=== PATIENT | female | born 1935 | race Two or more races ===

== ENCOUNTER 2017-06-23 08:16 | Inpatient (IN) | payer MEDICARE ==
[~2017-06-23] VITALS: Ht 162.6 cm; Wt 80.7 kg
--- NOTE | 2017-06-23 08:16 | NUR ---
BB RA 89 FROM HOME C/O SOB SATING 97% HYPOTENSIVE 65/34 NOW 124/84, STARTED TAKING LEVAQUIN AND VOLATAREN X1 DAY NURSING EXECUTIVE FROM PCP, MD AND RT AT BEDSIDE. PUT ON HOSPITAL GOWN AND MONITOR.
--- NOTE | 2017-06-23 08:44 | NUR ---
BLOOD SAMPLE SENT TO LAB
--- NOTE | 2017-06-23 08:44 | NUR ---
XRAY AT BS
--- NOTE | 2017-06-23 08:45 | NUR ---
IV ACCESS SEED ANALYSIS LABORATORY ASSISTANT.
[2017-06-23 08:55] LABS: BASOPHILS % (AUTO) 0.1 % (0.0-2.0); EOSINOPHILS # (AUTO) 0.9 /CMM (0.0-0.7); HEMATOCRIT 40 % (33-45); HEMOGLOBIN 12.8 g/dL (11.5-14.8); LYMPHOCYTES # (AUTO) 1.2 /CMM (0.8-4.8); LYMPHOCYTES % (AUTO) 11.1 % (20.0-44.0); MEAN CORPUSCULAR HEMOGLOBIN 29 PG (26.0-33.0); MEAN CORPUSCULAR HGB CONC 32 g/dl (31.0-36.0); MEAN CORPUSCULAR VOLUME 90 fL (82-100); MONOCYTES # (AUTO) 0.3 /CMM (0.1-1.30); MONOCYTES % (AUTO) 2.5 % (2.0-12.0); NEUTROPHILS # (AUTO) 8.8 /CMM (1.8-8.9); NEUTROPHILS % (AUTO) 78.3 % (43.0-81.0); PLATELET COUNT (AUTO) 284 /CMM (150-450); RED BLOOD CELL COUNT(AUTO) 4.42 MIL/uL (4.0-5.2); WHITE BLOOD COUNT (AUTO) 11.3 K/uL (4.3-11.0)
[2017-06-23 09:18] LABS: CALCIUM, SERUM 10.1 mg/dL (8.5-10.1); CARBON DIOXIDE 27 mmol/L (21-32); CHLORIDE 97 mmol/L (98-107); CREATININE 2.2 mg/dL (0.6-1.3); GLUCOSE 110 mg/dL (74-106); POTASSIUM 4.7 mmol/L (3.5-5.1); SODIUM SERUM 131 mmol/L (136-145); UREA NITROGEN, BLOOD 41 mg/dL (7-18)
--- NOTE | 2017-06-23 09:22 | NUR ---
FAMILY MEMBER AT BS.
[2017-06-23 09:25] LABS: TROPONIN I 0.092 ng/mL (0.00-0.056)
[2017-06-23 09:34] LABS: BILIRUBIN,TOTAL 0.4 mg/dL (0.2-1.0)
[2017-06-23 09:35] LABS: ALANINE AMINOTRANSFERASE 16 U/L (12-78); ALBUMIN 2.8 g/dL (3.4-5.0); ALKALINE PHOSPHATASE 141 U/L (46-116); ASPARTATE AMINOTRANSFERASE 15 U/L (15-37); B-TYPE NATRIURETIC PEPTIDE 11716 PG/ML (0-125); BILIRUBIN,DIRECT 0.1 mg/dL (0.0-0.2); TOTAL PROTEIN, SERUM 7.2 g/dL (6.4-8.2)
[2017-06-23] MEDS ORDERED: ATEN25TA PO (09:36)
[2017-06-23] MEDS ORDERED: VALS1TAB4 PO (09:36)
[2017-06-23] MEDS ORDERED: LEVO500T15 PO (09:36)
[2017-06-23] MEDS ORDERED: ALLO300T2 PO (09:36)
--- NOTE | 2017-06-23 09:43 | NUR ---
PAGED DR. KIMBROUGH FOR CARDIOLOGY CONSULT
[2017-06-23] MEDS ORDERED: DICL25TA2 PO (09:47)
--- NOTE | 2017-06-23 10:02 | NUR ---
DR. SHERMAN AT BS FOR POC.
--- NOTE | 2017-06-23 10:37 | NUR ---
REPORT GIVEN TO GLENN PORRAS FOR TELE ROOM 116
[2017-06-23 11:30] VITALS: BP 122/71
--- NOTE | 2017-06-23 11:30 | NUR ---
RN ADMITTING NOTES: REC'D REPORT FROM VERN ELIZABETH. PT ALREADY IN ROOM 116/2, TELE STATUS. PT IS A/O X4, NOT IN ANY DISTRESS, DENIES ANY CHEST PAIN/ DISCOMFORT. PT ON O2 AT 15LPM VIA MASK, SATURATING AT 100%. ON TELEMONITOR, AFIB W/ HR 79 BPM. PT HAS L AC G20, SL, FLUSHED, PATENT & INTACT W/ NO S/SX OF INFECTION/ INFILTRATION NOTED. HAS PATENT & INTACT FC DRAINING TO ADEQUATE URINE OUTPUT. SKIN ASSESSMENT DONE, NO SKIN IMPAIRMENT NOTED. PT ORIENTED TO ROOM. PROVIDED COMFORT AND SAFETY MEASURES. CALL LIGHT PLACED W/IN REACH. BED KEPT LOW & IN LOCKED POS. NO CONCERNS IDENTIFIED AT THIS TIME. WILL CONTINUE TO MONITOR AND ATTEND NEEDS.
[2017-06-23 12:00] VITALS: BP 115/49
--- NOTE | 2017-06-23 12:00 | NUR ---
RN NOTES: PER DR. LANE SOTELO TO PUT PT ON O2 AT 2LPM/NC.
--- NOTE | 2017-06-23 15:34 | NUR ---
RN NOTES: VERIFIED W/ DR. RAMOS IF HE WANTED TO ORDER FOR UA W/ CS. HE SAID NO NEED AT THIS TIME.
[2017-06-23 16:00] VITALS: BP 90/62
--- NOTE | 2017-06-23 17:00 | NUR ---
RN NOTES: PT SEEN AND EXAMINED BY DR. KIMBROUGH. PER MD, NO NEED FOR DVT PUMPS, PT ALREADY ON LOVENOX.
--- NOTE | 2017-06-23 18:55 | NUR ---
RN CLOSING NOTES: NO ACUTE CHANGES NOTED W/IN SHIFT. PT TOLERATED O2 AT 2LPM VIA NC, SATURATING AT 100%. ON TELEMONITOR, STILL AFIB. L AC G20, SL, KEPT PATENT & INTACT W/ NO S/SX OF INFECTION/ INFILTRATION NOTED. FC KEPT PATENT & INTACT. PT REMINDED THAT SHE IS ON FLUID RESTRICTION 1.2L/DAY. PT KEPT WELL RESTED. CALL LIGHT PLACED W/IN REACH. BED KEPT LOW & IN LOCKED POS. NO CONCERNS IDENTIFIED AT THIS TIME.PT DENIES AT PAIN/ DISCOMFORT. WILL ENDORSE TO PM RN FOR YAKOV.
--- NOTE | 2017-06-23 19:30 | NUR ---
RN INITIAL NOTE RECEIVED PT IN NO ACUTE DISTRESS IN BED. PT IS A/O X 3 AND ABLE TO MAKE NEEDS KNOWN. PT IS ON O2 VIA NC @ 2LPM AND TOLERATING WELL WITH O2 SAT @ 98%. PT IS NOT C/O ANY SOB, DIFFICULTY BREATHING OR PAIN AT THIS TIME. PT HAS F/C THAT IS CLEAN DRY AND INTACT WITH YELLOW URINE DRAINING. PT HAS LAC 20G THAT IS CLEAN DRY INTACT AND PATENT WITH SALINE FLUSH. BED IN LOW LOCK POSITION WITH RIALS UP X 2. CALL LIGHT WITHIN REACH AND ALL SAFETY MEASURES ENSURED AND CARRIED OUT. WILL CONTINUE TO MONITOR PT.
[2017-06-23 20:00] VITALS: BP 126/78
[2017-06-24] VITALS: BP 115/90
--- NOTE | 2017-06-24 02:11 | NUR ---
RN NOTE PT REQUESTED TO LEAVE AMA. SPOKE WITH PT'S FRIEND WHO STATED SHE WILL NOT BE ABLE TO PICK PT UP TONIGHT. NOTIFIED PT OF FRIENDS RESPONSE ON PICKING HER UP TONIGHT. PT SPOKE WITH FRIEND AND STATED HER FRIEND WILL COME GET HER TONIGHT. AWAITING PT'S FRIEND ARRIVAL BEFORE DISCHARGING PT AMA.
--- NOTE | 2017-06-24 03:00 | NUR ---
RN NOTE PT REQUESTED TO LEAVE AMA. EDUCATED PT ON LEAVING AMA, BUT PT STILL REQUESTED TO LEAVE AMA. CHARGE NURSE, [employer] AND MD NOTIFIED OF PT REQUEST. CALLED PT FRIEND DAHLIA AND NOTIFIED OF PT REQUEST AND WAS TOLD SHE WILL BE ON HER WAY TO PICK PT UP. AWAITING ARRIVAL OF DAHLIA TO PICK PT UP AND TRANSPORT HOME.
--- NOTE | 2017-06-24 03:40 | NUR ---
RN NOTE PT LEFT WITH FRIEND DAHLIA FROM THE UNIT AMA. WOODS AND ONLINE CONTENT EDITOR NOTIFIED. IV LINE REMOVED, SANTOS CATHETER REMOVED, AND O2 REMOVED. EDUCATED PT ON LEAVING AGAINST MEDICAL ADVICE. ALSO EDUCATED PT/FRIEND ON URINARY RETENTION FROM REMOVAL OF SANTOS CATHETER.
== END 2017-06-24 04:00 | disposition left against medical advice (07) | DRG 280 ==
LOC: ER 08:17 → TELE1 10:18
PROVIDERS: ADMIT Internal Medicine; ATTEND Internal Medicine
DX: I13.0 Hypertensive heart and chronic kidney disease with heart failure and stage 1 through stage 4 chronic kidney disease, or unspecified chronic kidney disease (principal); I21.4 Non-ST elevation (NSTEMI) myocardial infarction; J96.01 Acute respiratory failure with hypoxia; N17.0 Acute kidney failure with tubular necrosis; J18.9 Pneumonia, unspecified organism; I48.0 Paroxysmal atrial fibrillation; I44.7 Left bundle-branch block, unspecified; I50.33 Acute on chronic diastolic (congestive) heart failure; E87.1 Hypo-osmolality and hyponatremia; E66.9 Obesity, unspecified; Z96.653 Presence of artificial knee joint, bilateral; Z96.641 Presence of right artificial hip joint; N18.9 Chronic kidney disease, unspecified; Z68.30 Body mass index [BMI] 30.0-30.9, adult
CPT/HCPCS: 36415; 71010-TC; 80048-TC; 80076-TC; 83605-TC; 83880; 84484-TC; 85025-TC; 87040-TC; 87081-TC; 93307-TC; A4606; A6253; A6403; J1650; J1940; J3490; J7050; Z7610